=== PATIENT | female | born 1945 | race Caucasian/White ===

== ENCOUNTER 2016-06-23 17:12 | Inpatient (IN) | payer MEDICARE ==
[~2016-06-23] VITALS: Ht 152.4 cm; Wt 84.4 kg
[2016-06-23 17:12] VITALS: BP 92/58
[~2016-06-23 17:12] MED LIST: ASPIRIN81 M1 PO; BRILINTA90 M1 PO; FUROSEMIDE20 M1 PO; LEVEMIR10 ML SC; LISINOPRIL2.5 MG PO; MAGNESIUM OXID400 MG PO; MELATONIN10 M2 PO; METFORMIN HCL1000 M1 PO; METOPROLOL TART50 M1 PO; NAPROXEN500 MG PO; POTASSIUM CHLO10 ME5 PO; SIMVASTATIN40 MG PO; VITAMIN D32000 UNIT PO
[2016-06-23] MEDS ORDERED: AMARYL2 MG PO (17:26)
[2016-06-23 18:06] LABS: BASO % 0.4 % (0.0-1.0); EOS # 0.3 10*3/uL (0.0-0.4); EOS % 3.1 % (1.0-4.0); HEMATOCRIT 40.3 % (37.0-47.0); LYMPH # 3.4 10*3/uL (1.3-4.4); LYMPH % 41.3 % (27.0-41.0); MEAN CELL VOLUME 94.6 fl (81.0-99.0); MEAN CORPUSCULAR HGB 30.5 pg (27.0-31.0); MEAN CORPUSCULAR HGB CONC 32.3 g/dl (33.0-37.0); MEAN PLATELET VOLUME 11.4 fl (9.6-12.3); MONO # 0.6 10*3/uL (0.1-1.0); MONO % 7.5 % (3.0-9.0); NEUT # 3.9 10*3/uL (2.3-7.9); NEUT % 47.5 % (47.0-73.0); PLATELET COUNT AUTOMATED 191 10*3/uL (130-400); RED BLOOD COUNT 4.26 10*6/uL (4.10-5.10); RED CELL DISTRI WIDTH 12.9 % (0-14.5); WHITE BLOOD COUNT 8.2 10*3/uL (4.8-10.8)
[2016-06-23 18:13] LABS: ABG BASE EXCESS -1.3 mmol/L (-2.0-2.0); ABG CO2 CONTENT 23.1 mmol/L (23-27); ARTERIAL BLOOD GAS PH 7.438 (7.35-7.45)
[2016-06-23 18:18] LABS: BUN 11 mg/dl (7-24); CARBON DIOXIDE 24 mmol/L (21-32); EST GLOM FILT AFRICAN AMERICAN > 60 ml/min; GLUCOSE 117 mg/dL (65-99)
[2016-06-23 18:22] LABS: CHLORIDE 105 mmol/L (98-107); POTASSIUM 4.4 mmol/L (3.5-5.1); SODIUM 140 mmol/L (136-145)
[2016-06-23 18:30] VITALS: BP 134/69
[2016-06-23 19:29] VITALS: BP 132/79
[2016-06-23 20:49] VITALS: BP 136/77
[2016-06-23 21:00] VITALS: BP 128/65
[2016-06-24] VITALS: BP 126/62
[2016-06-24 06:04] LABS: BASO % 0.2 % (0.0-1.0); HEMOGLOBIN 12.4 g/dl (12.0-16.0); LYMPH # 1.2 10*3/uL (1.3-4.4); LYMPH % 18.4 % (27.0-41.0); MEAN CELL VOLUME 92.9 fl (81.0-99.0); MEAN CORPUSCULAR HGB 30.3 pg (27.0-31.0); MEAN CORPUSCULAR HGB CONC 32.6 g/dl (33.0-37.0); MEAN PLATELET VOLUME 11.6 fl (9.6-12.3); MONO # 0.1 10*3/uL (0.1-1.0); MONO % 0.9 % (3.0-9.0); NEUT # 5.2 10*3/uL (2.3-7.9); NEUT % 80.2 % (47.0-73.0); PLATELET COUNT AUTOMATED 185 10*3/uL (130-400); RED BLOOD COUNT 4.09 10*6/uL (4.10-5.10); RED CELL DISTRI WIDTH 12.6 % (0-14.5); WHITE BLOOD COUNT 6.5 10*3/uL (4.8-10.8)
[2016-06-24 06:12] LABS: BUN 16 mg/dl (7-24); CARBON DIOXIDE 23 mmol/L (21-32); CHLORIDE 99 mmol/L (98-107); CHOLESTEROL 81 mg/dL (<200); EST GLOM FILT AFRICAN AMERICAN 52 ml/min; FREE T4 1.42 ng/dl (0.76-1.46); GLUCOSE 372 mg/dL (65-99); HDL CHOLESTEROL 45 mg/dl (40-60); LDL CHOLESTEROL 26 mg/dL (9-159); MAGNESIUM 1.7 mg/dL (1.5-2.1); POTASSIUM 4.1 mmol/L (3.5-5.1); SODIUM 135 mmol/L (136-145); THYROID STIM HORMONE (HS) 0.131 uIU/ml (0.358-4.75); TRIGLYCERIDES 51 mg/dl (<150); VLDL CHOLESTEROL 10 mg/dL (6-40)
[2016-06-24 06:30] LABS: HEMOGLOBIN A1c 8.4 % (4.8-5.6)
[2016-06-24 06:34] LABS: TROPONIN I < 0.015 ng/ml (<0.5)
[2016-06-24 07:47] LABS: FOLIC ACID 8.6 ng/mL (>5.38)
[2016-06-24 08:00] VITALS: BP 136/58
[2016-06-24 12:00] VITALS: BP 120/84
[2016-06-24 16:00] VITALS: BP 120/48
[2016-06-24 20:00] VITALS: BP 133/88
[2016-06-25] VITALS: BP 130/85
[2016-06-25 06:30] LABS: BASO % 0.1 % (0.0-1.0); HEMATOCRIT 34.3 % (37.0-47.0); HEMOGLOBIN 11.3 g/dl (12.0-16.0); IG # 0.1 10*3/uL (0.0-0.1); LYMPH # 2.3 10*3/uL (1.3-4.4); LYMPH % 16.1 % (27.0-41.0); MEAN CELL VOLUME 92.5 fl (81.0-99.0); MEAN CORPUSCULAR HGB 30.5 pg (27.0-31.0); MEAN CORPUSCULAR HGB CONC 32.9 g/dl (33.0-37.0); MEAN PLATELET VOLUME 11.2 fl (9.6-12.3); MONO # 0.5 10*3/uL (0.1-1.0); MONO % 3.4 % (3.0-9.0); NEUT # 11.3 10*3/uL (2.3-7.9); NEUT % 79.9 % (47.0-73.0); PLATELET COUNT AUTOMATED 189 10*3/uL (130-400); RED BLOOD COUNT 3.71 10*6/uL (4.10-5.10); RED CELL DISTRI WIDTH 12.6 % (0-14.5); WHITE BLOOD COUNT 14.2 10*3/uL (4.8-10.8)
[2016-06-25 06:39] LABS: BUN 17 mg/dl (7-24); CARBON DIOXIDE 26 mmol/L (21-32); CHLORIDE 104 mmol/L (98-107); EST GLOM FILT AFRICAN AMERICAN > 60 ml/min; GLUCOSE 201 mg/dL (65-99); POTASSIUM 4.3 mmol/L (3.5-5.1); SODIUM 137 mmol/L (136-145)
[2016-06-25 08:00] VITALS: BP 126/54
[2016-06-25] MEDS ORDERED: LEVOFLOXACIN500 MG PO (11:49)
[2016-06-25] MEDS ORDERED: PREDNISONE10 MG PO (11:49)
[2016-06-25 12:00] VITALS: BP 110/52
== END 2016-06-25 13:25 | disposition home or self-care (01) | DRG 871 ==
LOC: ED 17:12 → EDHOLD 19:55 → 5E 20:13
PROVIDERS: Emergency Medicine; Internal Medicine
DX: A41.9 Sepsis, unspecified organism (principal); J96.01 Acute respiratory failure with hypoxia; N17.0 Acute kidney failure with tubular necrosis; J44.0 Chronic obstructive pulmonary disease with (acute) lower respiratory infection; J44.1 Chronic obstructive pulmonary disease with (acute) exacerbation; I10 Essential (primary) hypertension; E11.65 Type 2 diabetes mellitus with hyperglycemia; E78.5 Hyperlipidemia, unspecified; E11.42 Type 2 diabetes mellitus with diabetic polyneuropathy; F17.210 Nicotine dependence, cigarettes, uncomplicated; R00.0 Tachycardia, unspecified; D72.810 Lymphocytopenia; R65.20 Severe sepsis without septic shock; Z90.49 Acquired absence of other specified parts of digestive tract; Z98.51 Tubal ligation status; Z82.49 Family history of ischemic heart disease and other diseases of the circulatory system; Z71.6 Tobacco abuse counseling; Z79.82 Long term (current) use of aspirin; Z79.4 Long term (current) use of insulin; Z79.899 Other long term (current) drug therapy

== ENCOUNTER 2017-02-16 13:21 | Inpatient (IN) | payer MEDICARE ==
[~2017-02-16] VITALS: Ht 152.4 cm; Wt 84.6 kg
[~2017-02-16 13:21] MED LIST changes: +AMARYL2 MG PO; +LEVEMIR FL100 UNIT/1 SQ; -LEVEMIR10 ML SC; +LEVOFLOXACIN500 MG PO; +PREDNISONE10 MG PO
[2017-02-16 13:40] VITALS: BP 116/61
[2017-02-16 14:16] VITALS: BP 104/59
[2017-02-16 14:16] LABS: BASO % 0.3 % (0.0-1.0); EOS # 0.1 10*3/uL (0.0-0.4); EOS % 0.5 % (1.0-4.0); HEMATOCRIT 40.9 % (37.0-47.0); LYMPH # 1.8 10*3/uL (1.3-4.4); MEAN CELL VOLUME 92.3 fl (81.0-99.0); MEAN CORPUSCULAR HGB 29.3 pg (27.0-31.0); MEAN CORPUSCULAR HGB CONC 31.8 g/dl (33.0-37.0); MEAN PLATELET VOLUME 11.6 fl (9.6-12.3); MONO # 0.8 10*3/uL (0.1-1.0); MONO % 6.8 % (3.0-9.0); NEUT # 9.2 10*3/uL (2.3-7.9); PLATELET COUNT AUTOMATED 286 10*3/uL (130-400); RED BLOOD COUNT 4.43 10*6/uL (4.10-5.10)
[2017-02-16 14:26] LABS: ACT PARTIAL THROMBO TIME 24.7 SECONDS (20.8-31.5)
[2017-02-16 14:33] LABS: ALBUMIN 3.6 gm/dl (3.1-4.5); ALKALINE PHOSPHATASE 65 U/L (45-117); BUN 28 mg/dl (7-24); CHLORIDE 102 mmol/L (98-107); CKMB 0.9 ng/ml (0.5-3.6); CPK 144 U/L (26-192); CREATININE 1.77 mg/dL (0.55-1.02); LIPASE 200 U/L (73-393); MAGNESIUM 2.3 mg/dL (1.5-2.1); POTASSIUM 4.4 mmol/L (3.5-5.1); SGOT/AST 28 IU/L (3-35); SGPT/ALT 22 U/L (12-78); SODIUM 137 mmol/L (136-145); TOTAL PROTEIN 8.3 gm/dL (6.4-8.2)
[2017-02-16 14:34] LABS: TROPONIN I < 0.015 ng/ml (<0.045)
[2017-02-16 16:15] VITALS: BP 121/78
[2017-02-16 17:00] VITALS: BP 130/76
[2017-02-16 18:20] VITALS: BP 144/68
--- NOTE | 2017-02-16 18:56 | NUR ---
MED REC UPDATED AGAINST PHARMACY LIST -
--- NOTE | 2017-02-16 19:12 | NUR ---
[address] DIMAS PATIENT MAY BE TRASPORTED WITH OUT MONITOR . OZ IRWIN RN.
--- NOTE | 2017-02-16 19:33 | NUR ---
Time: 1829 A 72 year old F admitted to 5E under services of JENNIFER TURCIOS DO. Pt. arrived via bed from ER. Chief complaint: HYPOGLYCEMIA. GRAZYNA BUTLER A
[2017-02-16 20:00] VITALS: BP 138/74
--- NOTE | 2017-02-16 20:00 | NUR ---
PATIENT IS AWAKE, ALERT AND ORIENTED X3 PLEASANT AND COOPERATIVE WITH ASSESSMENT. LUNGS ARE DIMINISHED THROUGHOUT LUNGFIELDS. ROOM AIR. ABDOMEN IS SOFT AND NON-TENDER UPON PALPATION, BOWEL SOUNDS ARE NROMAOCTIVE X 4 QUADS. NO EDEMA TO BLE, PPP. PATIENT DENIES ANY PAIN OR DISCOMFORT. CALL LIGHT IS IN REACH.
[2017-02-17] VITALS: BP 118/73
--- NOTE | 2017-02-17 05:55 | NUR ---
PATIENT AROUSES EASILY FOR MORNING MEDICATIONS. ALERT AND ORIENTED X 3. DENIES ANY NEEDS AT THE PRESENT TIME. CALL LIGHT IS IN REACH.
[2017-02-17 06:01] LABS: BASO # 0.1 10*3/uL (0.0-0.1); BASO % 0.5 % (0.0-1.0); EOS # 0.2 10*3/uL (0.0-0.4); HEMATOCRIT 36.6 % (37.0-47.0); HEMOGLOBIN 11.9 g/dl (12.0-16.0); LYMPH # 3.6 10*3/uL (1.3-4.4); MEAN CORPUSCULAR HGB 29.6 pg (27.0-31.0); MEAN CORPUSCULAR HGB CONC 32.5 g/dl (33.0-37.0); MEAN PLATELET VOLUME 11.5 fl (9.6-12.3); MONO % 9.9 % (3.0-9.0); NEUT # 5.2 10*3/uL (2.3-7.9); NEUT % 51.2 % (47.0-73.0); PLATELET COUNT AUTOMATED 236 10*3/uL (130-400); RED BLOOD COUNT 4.02 10*6/uL (4.10-5.10); RED CELL DISTRI WIDTH 13.9 % (0-14.5); WHITE BLOOD COUNT 10.1 10*3/uL (4.8-10.8)
[2017-02-17 06:22] LABS: ALBUMIN 3.2 gm/dl (3.1-4.5); CREATININE 1.36 mg/dL (0.55-1.02); PHOSPHOROUS 3.3 mg/dL (2.5-4.9); POTASSIUM 4.5 mmol/L (3.5-5.1); TOTAL PROTEIN 7.1 gm/dL (6.4-8.2)
[2017-02-17 06:28] LABS: FREE T4 1.4 ng/dl (0.76-1.46); THYROID STIM HORMONE (HS) 0.262 uIU/ml (0.358-4.75)
[2017-02-17 07:45] LABS: VITAMIN D, 25-HYDROXY 37.4 ng/mL (30-100)
[2017-02-17 12:00] VITALS: BP 112/65
[2017-02-17 14:22] LABS: BILIRUBIN 1+ (NEGATIVE); BLOOD TRACE-INTACT (NEGATIVE); CLARITY CLEAR (CLEAR); COLOR YELLOW (YELLOW); GLUCOSE NEGATIVE (NEGATIVE); KETONE 1+ (NEGATIVE); LEUKO ESTERASE NEGATIVE (NEGATIVE); NITRITE NEGATIVE (NEGATIVE); SPECIFIC GRAVITY 1.025 (1.005-1.030); UROBILINOGEN 0.2 E.U./dl (0.2-1.0)
[2017-02-17 14:39] LABS: BACTERIA 1+; EPITHELIAL CELLS 35-40
[2017-02-17 16:00] VITALS: BP 103/55
[2017-02-17 20:00] VITALS: BP 109/75
[2017-02-18] VITALS: BP 105/55
[2017-02-18 05:58] LABS: BASO # 0.1 10*3/uL (0.0-0.1); BASO % 0.5 % (0.0-1.0); EOS # 0.3 10*3/uL (0.0-0.4); EOS % 2.5 % (1.0-4.0); HEMATOCRIT 33.4 % (37.0-47.0); HEMOGLOBIN 10.6 g/dl (12.0-16.0); LYMPH # 4.2 10*3/uL (1.3-4.4); LYMPH % 39.8 % (27.0-41.0); MEAN CELL VOLUME 92.5 fl (81.0-99.0); MEAN CORPUSCULAR HGB 29.4 pg (27.0-31.0); MEAN CORPUSCULAR HGB CONC 31.7 g/dl (33.0-37.0); MEAN PLATELET VOLUME 11.5 fl (9.6-12.3); MONO % 9.7 % (3.0-9.0); NEUT % 47.2 % (47.0-73.0); PLATELET COUNT AUTOMATED 215 10*3/uL (130-400); RED BLOOD COUNT 3.61 10*6/uL (4.10-5.10); RED CELL DISTRI WIDTH 13.8 % (0-14.5); WHITE BLOOD COUNT 10.6 10*3/uL (4.8-10.8)
[2017-02-18 06:29] LABS: CREATININE 1.19 mg/dL (0.55-1.02); POTASSIUM 4.3 mmol/L (3.5-5.1)
[2017-02-18 08:00] VITALS: BP 115/54
[2017-02-18 12:00] VITALS: BP 101/56
--- NOTE | 2017-02-18 14:29 | NUR ---
Discharge instructions reviewed with patient. Patient receptive and verbalizes understanding. Follow-up care arranged. Written instructions given to patient. KEM MIX
--- NOTE | 2017-02-18 15:00 | NUR ---
PATIENT AWAITING RIDE HOME WITH DAUGHTER AFTER 6PM.
--- NOTE | 2017-02-18 17:52 | NUR ---
Discharge instructions reviewed with patient/family. Patient receptive and verbalizes understanding. Follow-up care arranged. Written instructions given to patient/family. DEONDRE LONDONO
--- NOTE | 2017-02-18 17:53 | NUR ---
PATIENT AMBULATED OFF FLOOR WITH ASSISTANCE OF KODAK.
== END 2017-02-18 17:53 | disposition home or self-care (01) | DRG 73 ==
LOC: ED 13:21 → EDHOLD 15:42 → 5E 16:36
PROVIDERS: Emergency Medicine; Family Medicine; Registered Nurse; ADMIT Internal Medicine
DX: E11.40 Type 2 diabetes mellitus with diabetic neuropathy, unspecified (principal); N17.0 Acute kidney failure with tubular necrosis; E11.649 Type 2 diabetes mellitus with hypoglycemia without coma; J44.9 Chronic obstructive pulmonary disease, unspecified; F17.210 Nicotine dependence, cigarettes, uncomplicated; E86.0 Dehydration; I10 Essential (primary) hypertension; D72.829 Elevated white blood cell count, unspecified; E78.5 Hyperlipidemia, unspecified; I25.2 Old myocardial infarction; Z90.49 Acquired absence of other specified parts of digestive tract; Z95.818 Presence of other cardiac implants and grafts; Z98.51 Tubal ligation status; Z82.49 Family history of ischemic heart disease and other diseases of the circulatory system; Z79.82 Long term (current) use of aspirin; Z79.899 Other long term (current) drug therapy; Z83.3 Family history of diabetes mellitus; Z79.4 Long term (current) use of insulin; Z79.84 Long term (current) use of oral hypoglycemic drugs; Z71.6 Tobacco abuse counseling

== ENCOUNTER → 2017-08-02 | Outpatient (CLI) | payer MEDICARE | END | disposition home or self-care (01) | LOC: RAD 10:17 | DX: M54.5 Low back pain (principal) ==

== ENCOUNTER 2017-10-09 23:25 | Emergency (ER) | payer MEDICARE ==
[~2017-10-09] VITALS: Ht 152.4 cm; Wt 83.0 kg
[2017-10-09] MEDS ORDERED: LEVEMIR100 UNIT/1 SC (23:32)
[2017-10-09] MEDS ORDERED: CITALOPRAM20 MG PO (23:32)
[2017-10-09] MEDS ORDERED: MELOXICAM7.5 MG PO (23:33)
== END 2017-10-10 00:55 | disposition home or self-care (01) ==
LOC: ED 23:25
DX: S21.202A Unspecified open wound of left back wall of thorax without penetration into thoracic cavity, initial encounter (principal); F17.200 Nicotine dependence, unspecified, uncomplicated; Z90.49 Acquired absence of other specified parts of digestive tract; Z98.51 Tubal ligation status; Z79.899 Other long term (current) drug therapy; Z79.82 Long term (current) use of aspirin; Z95.5 Presence of coronary angioplasty implant and graft; X58.XXXA Exposure to other specified factors, initial encounter; Y93.89 Activity, other specified; Y92.89 Other specified places as the place of occurrence of the external cause; Y99.9 Unspecified external cause status

== ENCOUNTER → 2017-10-15 | Outpatient (CLI) | payer MEDICARE ==
[~2017-10-15] MED LIST changes: +CITALOPRAM20 MG PO; +LEVEMIR100 UNIT/1 SC; +MELOXICAM7.5 MG PO
== END | disposition home or self-care (01) ==
LOC: WOUNDCARE 01:43
DX: E11.622 Type 2 diabetes mellitus with other skin ulcer (principal); L98.421 Non-pressure chronic ulcer of back limited to breakdown of skin; I51.9 Heart disease, unspecified; F17.210 Nicotine dependence, cigarettes, uncomplicated; Z79.4 Long term (current) use of insulin; Z90.49 Acquired absence of other specified parts of digestive tract

== ENCOUNTER 2018-12-14 15:22 | Emergency (ER) | payer MEDICARE ==
[~2018-12-14] VITALS: Ht 152.4 cm; Wt 83.9 kg
== END 2018-12-14 17:32 | disposition home or self-care (01) ==
LOC: ED 15:22
DX: S90.122A Contusion of left lesser toe(s) without damage to nail, initial encounter (principal); R60.0 Localized edema; F17.210 Nicotine dependence, cigarettes, uncomplicated; Z79.899 Other long term (current) drug therapy; Z79.82 Long term (current) use of aspirin; Z79.84 Long term (current) use of oral hypoglycemic drugs; Z90.49 Acquired absence of other specified parts of digestive tract; W19.XXXA Unspecified fall, initial encounter; Y93.89 Activity, other specified; Y92.89 Other specified places as the place of occurrence of the external cause; Y99.8 Other external cause status

== ENCOUNTER 2019-02-25 13:50 | Inpatient (IN) | payer MEDICARE ==
[~2019-02-25] VITALS: Ht 152.4 cm; Wt 83.0 kg
[2019-02-25 14:13] LABS: BASO # 0.1 10*3/uL (0.0-0.1); BASO % 0.6 % (0.0-1.0); EOS # 0.2 10*3/uL (0.0-0.4); HEMATOCRIT 39.5 % (37.0-47.0); HEMOGLOBIN 12.1 g/dl (12.0-16.0); LYMPH # 3.1 10*3/uL (1.3-4.4); LYMPH % 29.5 % (27.0-41.0); MEAN CELL VOLUME 95.2 fl (81.0-99.0); MEAN CORPUSCULAR HGB 29.2 pg (27.0-31.0); MEAN CORPUSCULAR HGB CONC 30.6 g/dl (33.0-37.0); MEAN PLATELET VOLUME 11.5 fl (9.6-12.3); MONO # 0.7 10*3/uL (0.1-1.0); NEUT # 6.3 10*3/uL (2.3-7.9); NEUT % 60.6 % (47.0-73.0); PLATELET COUNT AUTOMATED 280 10*3/uL (130-400); RED BLOOD COUNT 4.15 10*6/uL (4.10-5.10); RED CELL DISTRI WIDTH 13.6 % (0-14.5); WHITE BLOOD COUNT 10.4 10*3/uL (4.8-10.8)
[2019-02-25 14:21] VITALS: BP 133/61
[2019-02-25 14:26] LABS: ACT PARTIAL THROMBO TIME 25.6 SECONDS (20.0-32.1); INTERNATIONAL NORM RATIO 0.9 (2.0-3.5)
[2019-02-25 14:32] LABS: ALBUMIN 3.2 gm/dl (3.1-4.5); ALKALINE PHOSPHATASE 71 U/L (45-117); BUN 11 mg/dl (7-24); CHLORIDE 103 mmol/L (98-107); CREATININE 0.88 mg/dL (0.55-1.02); POTASSIUM 4.2 mmol/L (3.5-5.1); SGOT/AST 29 IU/L (3-35); SGPT/ALT 18 U/L (12-78); SODIUM 138 mmol/L (136-145); TOTAL PROTEIN 7.2 gm/dL (6.4-8.2)
[2019-02-25 14:40] LABS: TROPONIN I < 0.015 ng/ml (<0.045)
[2019-02-25 16:00] VITALS: BP 139/70
[2019-02-25 16:04] VITALS: BP 139/70
--- NOTE | 2019-02-25 16:40 | NUR ---
A 74, admitted to 5E, under the services of LESLIE Ahuja DO with a diagnosis of COPD. Chief complaint is SOB. Patient arrived via stretcher from ER. Monitor applied. Initial assessment completed. Vital signs taken and recorded. LESLIE AHUJA DO notified of admission to the unit. Orders received. See assessment for past medical history, medications and allergies. Patient and/or family oriented to unit. [facility] visitation policy reviewed. Clothing/patient valuable form completed. FABIO PEÑA
[2019-02-25] MEDS ORDERED: LASIX20 MG PO (17:37)
[2019-02-25] MEDS ORDERED: NAPROSYN500 MG PO (17:38)
--- NOTE | 2019-02-25 18:15 | NUR ---
DR HUDSON NOTIFIED OF CONSULT
[2019-02-25 20:00] VITALS: BP 115/41
[2019-02-25 20:30] VITALS: BP 122/78
--- NOTE | 2019-02-25 20:40 | NUR ---
RESTING IN BED. NO C/O AT THIS TIME. CALL LIGHT IN REACH. SEE SHIFT ASSESSMENT.
--- NOTE | 2019-02-25 22:00 | NUR ---
RESTING IN BED WITH EYES CLOSED. RESP-EASY AND REGULAR. CALL LIGHT IN REACH.
[2019-02-26] VITALS (8 sets, daily range): BP systolic 106–142; BP diastolic 51–73
--- NOTE | 2019-02-26 00:10 | NUR ---
PT SLEEPING IN BED, AWAKENS EASILY. NO C/O AT THIS TIME. CALL LIGHT IN REACH. SEE SHIFT ASSESSMENT.
--- NOTE | 2019-02-26 04:00 | NUR ---
TOLERATED ROUTINE MED WITH NO PROBLEM. CALL LIGHT IN REACH.
--- NOTE | 2019-02-26 06:00 | NUR ---
ASSISTED TO BATHROOM AND BACK TO BED. NO C/O AT THIS TIME. CALL LIGHT IN REACH.
[2019-02-26 06:18] LABS: RED CELL DISTRI WIDTH 13.2 % (0-14.5)
[2019-02-26 06:52] LABS: ALBUMIN 3.2 gm/dl (3.1-4.5); BUN 16 mg/dl (7-24); CHLORIDE 101 mmol/L (98-107); CHOLESTEROL 95 mg/dL (<200); POTASSIUM 4.2 mmol/L (3.5-5.1); SGOT/AST 18 IU/L (3-35); SODIUM 135 mmol/L (136-145); TRIGLYCERIDES 64 mg/dl (<150); VLDL CHOLESTEROL 13 mg/dL (6-40)
[2019-02-26 07:00] LABS: ALKALINE PHOSPHATASE 71 U/L (45-117); CREATININE 0.89 mg/dL (0.55-1.02); HDL CHOLESTEROL 59 mg/dl (40-60); LDL CHOLESTEROL 23 mg/dL (9-159); SGPT/ALT 17 U/L (12-78); THYROID STIM HORMONE (HS) 0.202 uIU/ml (0.358-4.75); TOTAL PROTEIN 7.5 gm/dL (6.4-8.2)
[2019-02-26 07:06] LABS: INTERNATIONAL NORM RATIO 0.9 (2.0-3.5)
[2019-02-26 08:08] LABS: VITAMIN D, 25-HYDROXY 41.3 ng/mL (30-100)
[2019-02-26 08:13] LABS: BURR CELLS FEW; TOTAL CELLS COUNTED 100 #CELLS
[2019-02-26 08:14] LABS: OVALOCYTES FEW; PLATELET SUFFICIENCY NORMAL (NORMAL)
[2019-02-26 08:16] LABS: HEMATOCRIT 39.6 % (37.0-47.0); HEMOGLOBIN 12.4 g/dl (12.0-16.0); MEAN CELL VOLUME 93.4 fl (81.0-99.0); MEAN CORPUSCULAR HGB 29.2 pg (27.0-31.0); MEAN CORPUSCULAR HGB CONC 31.3 g/dl (33.0-37.0); MEAN PLATELET VOLUME 11.7 fl (9.6-12.3); PLATELET COUNT AUTOMATED 300 10*3/uL (130-400); RED BLOOD COUNT 4.24 10*6/uL (4.10-5.10); WHITE BLOOD COUNT 8.2 10*3/uL (4.8-10.8)
--- NOTE | 2019-02-26 09:00 | NUR ---
Catering Barista in to talk to patient. Patient states lives at home with alone. There are few steps in the home. Physician: armani nelson [facility]: [facility] Home health services: none Patient's level of ADLs: INDEPENDENT Patient has working utilities: all working DME: rollator walker, cane Follow-up physician's appointment after d/c: will be made by hospitalist nurse director upon discharge Does patient want to access PORTAL?: no Discharge plan discussed with patient, she states she lives at home alone, she is independent with a rollator walker and is independent in adls, she has always best care professional that comes 3x week and helps with cleaning, patient states she will return home when able, discussed with her VNA and she declines any home services at this time, case management will follow. GENNA NORMAN
--- NOTE | 2019-02-26 15:04 | NUR ---
PHYSICAL THERAPY Physical therapy evaluation complete, 5E. Low complexity PT evaluation (65478) per chart review and evaluation. PT to progress transfers, gait, balance, and LE strength per POC. Recommend discharge home with home health PT services. Thank you. Evi Thomson,PT,DPT.
--- NOTE | 2019-02-26 15:05 | NUR ---
Occupational therapy orders received and OT eval completed in full on floor five. Patient precautions include fall risk, ww use, and SOB with exertion. Per OT eval, patient would benefit from home health SN, PT, and OT services. Patient would benefit from continued OT treatment to maximize independence and safety during ADLs and functional mobility/transfers. Patient complexity is low, [id number]. Thank you for the referral. Cindy Angeles, OTR/L
[2019-02-27] VITALS: BP 114/63
[2019-02-27 07:16] LABS: BUN 21 mg/dl (7-24); CHLORIDE 103 mmol/L (98-107); CREATININE 0.95 mg/dL (0.55-1.02); POTASSIUM 4.5 mmol/L (3.5-5.1); SODIUM 137 mmol/L (136-145)
--- NOTE | 2019-02-27 07:50 | NUR ---
PT RESTING IN BED. RESP-EASY AND REGULAR. NO C/O AT THIS TIME. CALL LIGHT IN REACH. SEE SHIFT ASSESSMENT.
--- NOTE | 2019-02-27 09:00 | NUR ---
TOLERATED ROUTINE MED WITH NO PROBLEM. NO C/O AT THIS TIME. CALL LIGHT IN REACH.
--- NOTE | 2019-02-27 09:00 | NUR ---
case management visits with patient, discussed with her a discharge plan, she states she would be returning home when medically stable, discussed with her VNA and she declines any services at this time, case management will follow
--- NOTE | 2019-02-27 11:00 | NUR ---
PHYSICAL THERAPY Patient seen this am 1:1 for therapy visit and was resting supine in bed upon therapist arrival. Patient identified by name / and reports no new c/o's at this time. Patient transfers supine to sit EOB and sit to stand SBA, ambulating with use of wh walker, 75'x 1, CGA, demonstrating slow steady ceci. Patient returned to supine in bed with mild fatiuge and remained with call light, tray table and cell phone. Will continue per POC as tolerated, total treatment time 14 minutes. Waylon Humphrey, DISTRICT RANGER
--- NOTE | 2019-02-27 11:45 | NUR ---
DR. BYRD MADE AWARE PT [id number], MEDICATED PER EMAR.
[2019-02-27] MEDS ORDERED: Carafate1 GM/10 ML PO (12:34)
[2019-02-27] MEDS ORDERED: PHARMASSURE V500 MCG PO (12:35)
[2019-02-27] MEDS ORDERED: DOXYCYCLINE100 M3 PO (12:35)
[2019-02-27] MEDS ORDERED: PREDNISONE10 MG PO (12:35)
[2019-02-27] MEDS ORDERED: PROTONIX40 MG PO (12:35)
--- NOTE | 2019-02-27 13:43 | NUR ---
Discharge instructions reviewed with patient/family. Patient receptive and verbalizes understanding. Follow-up care arranged. Written instructions given to patient/family. HEPLOCK REMOVED 2X2 APPLIED. HOLTER REMOVED. ESCORTED VIA WHEELCHAIR FOR DISCHARGE WITH VISITOR AT HER SIDE. CLARENCE RMAOS R
--- NOTE | 2019-02-28 07:45 | NUR ---
PHYSICAL THERAPY CO-SIGN I approve of the Physical Therapy notes written above. JOS EA FUENTES PT,DPT
[2019-04-17] MEDS ORDERED: ASPIR 8181 MG PO (10:14)
[2019-04-17] MEDS ORDERED: BRILINTA60 MG PO (10:14)
[2019-04-17] MEDS ORDERED: PROPRANOLOL HCL10 MG PO (10:15)
[2019-04-17] MEDS ORDERED: NEURONTIN600 MG PO (10:15)
== END 2019-02-27 13:38 | disposition home or self-care (01) | DRG 383 ==
LOC: ED 13:50 → EDHOLD 15:58 → 5E 15:58
PROVIDERS: Emergency Medicine; Student in an Organized Health Care Education/Training Program; ADMIT Internal Medicine
PROC: 0DB78ZX Excision of Stomach, Pylorus, Via Natural or Artificial Opening Endoscopic, Diagnostic (ICD-10-PCS; principal; 2019-02-26)
DX: K25.9 Gastric ulcer, unspecified as acute or chronic, without hemorrhage or perforation (principal); J18.9 Pneumonia, unspecified organism; J96.01 Acute respiratory failure with hypoxia; J44.0 Chronic obstructive pulmonary disease with (acute) lower respiratory infection; J44.1 Chronic obstructive pulmonary disease with (acute) exacerbation; I24.9 Acute ischemic heart disease, unspecified; E44.0 Moderate protein-calorie malnutrition; K29.80 Duodenitis without bleeding; K29.70 Gastritis, unspecified, without bleeding; K44.9 Diaphragmatic hernia without obstruction or gangrene; R00.0 Tachycardia, unspecified; E78.5 Hyperlipidemia, unspecified; F17.210 Nicotine dependence, cigarettes, uncomplicated; E11.42 Type 2 diabetes mellitus with diabetic polyneuropathy; E66.9 Obesity, unspecified; E55.9 Vitamin D deficiency, unspecified; K26.9 Duodenal ulcer, unspecified as acute or chronic, without hemorrhage or perforation; I10 Essential (primary) hypertension; E11.65 Type 2 diabetes mellitus with hyperglycemia; Z79.4 Long term (current) use of insulin; I25.2 Old myocardial infarction; Z95.5 Presence of coronary angioplasty implant and graft; Z90.49 Acquired absence of other specified parts of digestive tract; Z98.51 Tubal ligation status; Z82.49 Family history of ischemic heart disease and other diseases of the circulatory system; Z83.3 Family history of diabetes mellitus; Z79.82 Long term (current) use of aspirin; Z79.899 Other long term (current) drug therapy; Z79.84 Long term (current) use of oral hypoglycemic drugs; Z68.35 Body mass index [BMI] 35.0-35.9, adult

== ENCOUNTER → 2019-04-17 | Outpatient (CLI) | payer MEDICARE ==
[~2019-04-17] MED LIST changes: +ASPIR 8181 MG PO; +BRILINTA60 MG PO; +Carafate1 GM/10 ML PO; +DOXYCYCLINE100 M3 PO; +LASIX20 MG PO; +NAPROSYN500 MG PO; +NEURONTIN600 MG PO; +PHARMASSURE V500 MCG PO; +PROPRANOLOL HCL10 MG PO; +PROTONIX40 MG PO
--- NOTE | ~2019-04-17 | ST ---
[place], [place] EXERCISE STRESS TEST REPORT NAME: HUNTER DAVILA UNIT #: [id number] ROOM: DOCTOR: SUPRIYA ROMO [facility]LL[facility] BIRTHDATE: [birth year] DOS: 04/17/2019 LEXISCAN WITH CARDIOLITE The patient received Lexiscan 0.4 mg over 10 seconds. Heart rate is 116. No ischemic changes noted in the EKG, complete right bundle branch block. No significant changes noted and isotope was injected. Myocardial perfusion scan to follow. No complication noted. HOLLIE EPPS MD CM:STRESS:EXERCISE STRESS TEST REPORT [id number] HOLLIE EPPS MD [facility]
--- NOTE | 2019-04-17 12:30 | NUR ---
INFORMED CONSENT OBTAINED FOR LEXISCAN NUCLEAR STRESS TEST WITH DR. EPPS. RESTING EKG INCOMPLETE RBBB WITH A RESTING HR OF 89 WITH BP OF 102/68. LUNGS CLEAR WITH SP02 OF 97% ON ROOM AIR. PT COMPLETED A 1:00 LEXISCAN PROTOCOL RECEIVING LEXISCAN 0.4 MG IV OVER 10 SECONDS. HAD NO CHEST PAIN OR ANY EKG CHANGES. HAD C/O SHORTNESS OF BREATH THAT RESOLVED IN RECOVERY. HAD A PEAK HR OF 115 WITH BP OF 106/48. LAST RECOVERY HR OF 118 WITH BP OF 98/50. AWAITING SCANNING IN STABLE CONDITION.
== END | disposition home or self-care (01) ==
LOC: CARD 00:47
DX: I25.10 Atherosclerotic heart disease of native coronary artery without angina pectoris (principal); R06.02 Shortness of breath; R00.0 Tachycardia, unspecified; R94.31 Abnormal electrocardiogram [ECG] [EKG]; R53.81 Other malaise; Z72.0 Tobacco use; Z95.5 Presence of coronary angioplasty implant and graft

== ENCOUNTER → 2019-05-05 | Outpatient (CLI) | payer MEDICARE | END | disposition home or self-care (01) | LOC: CARD 10:10 | DX: I25.10 Atherosclerotic heart disease of native coronary artery without angina pectoris (principal); R06.02 Shortness of breath; R00.0 Tachycardia, unspecified; R94.31 Abnormal electrocardiogram [ECG] [EKG]; Z72.0 Tobacco use; Z95.5 Presence of coronary angioplasty implant and graft ==

== ENCOUNTER → 2020-02-19 | Outpatient (CLI) | payer MEDICARE ==
[2020-02-19 10:55] LABS: BUN 11 mg/dl (7-24); CHLORIDE 106 mmol/L (98-107); CHOLESTEROL 96 mg/dL (<200); HDL CHOLESTEROL 53 mg/dl (40-60); LDL CHOLESTEROL 19 mg/dL (9-159); POTASSIUM 4.2 mmol/L (3.5-5.1); SGOT/AST 11 IU/L (3-35); SGPT/ALT 12 U/L (12-78); SODIUM 140 mmol/L (136-145); TRIGLYCERIDES 118 mg/dl (<150); VLDL CHOLESTEROL 24 mg/dL (6-40)
== END | disposition home or self-care (01) ==
LOC: LAB 09:27
PROVIDERS: ATTEND Internal Medicine Cardiovascular Disease
DX: I25.10 Atherosclerotic heart disease of native coronary artery without angina pectoris (principal); R60.0 Localized edema; Z72.0 Tobacco use; Z95.5 Presence of coronary angioplasty implant and graft

== ENCOUNTER → 2020-12-27 | Outpatient (CLI) | payer OTHER | END | disposition home or self-care (01) | LOC: US 15:50 | PROVIDERS: ATTEND Internal Medicine Cardiovascular Disease | DX: R60.0 Localized edema (principal) ==

== ENCOUNTER → 2021-01-13 | Outpatient (CLI) | payer OTHER ==
[2021-01-13 09:18] LABS: BASO # 0.1 10*3/uL (0.0-0.1); BASO % 0.5 % (0.0-1.0); EOS # 0.3 10*3/uL (0.0-0.4); EOS % 2.8 % (1.0-4.0); LYMPH # 3.3 10*3/uL (1.3-4.4); LYMPH % 29.4 % (27.0-41.0); MEAN CELL VOLUME 96.5 fl (81.0-99.0); MEAN CORPUSCULAR HGB 29.8 pg (27.0-31.0); MEAN CORPUSCULAR HGB CONC 30.9 g/dl (33.0-37.0); MEAN PLATELET VOLUME 11.5 fl (9.6-12.3); MONO # 0.9 10*3/uL (0.1-1.0); MONO % 8.1 % (3.0-9.0); NEUT # 6.7 10*3/uL (2.3-7.9); NEUT % 58.8 % (47.0-73.0); PLATELET COUNT AUTOMATED 251 10*3/uL (130-400); RED BLOOD COUNT 4.56 10*6/uL (4.10-5.10); RED CELL DISTRI WIDTH 12.6 % (0-14.5); WHITE BLOOD COUNT 11.3 10*3/uL (4.8-10.8)
[2021-01-13 09:45] LABS: CREATININE 1.32 mg/dL (0.55-1.02); POTASSIUM 3.9 mmol/L (3.5-5.1)
== END | disposition home or self-care (01) ==
LOC: LAB 08:50
PROVIDERS: ATTEND Registered Nurse
DX: I25.10 Atherosclerotic heart disease of native coronary artery without angina pectoris (principal)

== ENCOUNTER → 2021-02-21 | Outpatient (CLI) | payer OTHER ==
[2021-02-21 08:51] LABS: HEMATOCRIT 36.9 % (37.0-47.0); MEAN CELL VOLUME 92.3 fl (81.0-99.0); MEAN CORPUSCULAR HGB 27.8 pg (27.0-31.0); MEAN CORPUSCULAR HGB CONC 30.1 g/dl (33.0-37.0); MEAN PLATELET VOLUME 11.5 fl (9.6-12.3); RED CELL DISTRI WIDTH 13.1 % (0-14.5)
[2021-02-21 09:03] LABS: CREATININE 1.33 mg/dL (0.55-1.02); POTASSIUM 4.1 mmol/L (3.5-5.1)
== END | disposition home or self-care (01) ==
LOC: LAB 08:15
PROVIDERS: ATTEND Internal Medicine Cardiovascular Disease
DX: I25.10 Atherosclerotic heart disease of native coronary artery without angina pectoris (principal); R60.0 Localized edema

== ENCOUNTER → 2021-11-02 | Day surgery (SDC) | payer OTHER ==
[~2021-11-02] VITALS: Ht 152.4 cm; Wt 87.5 kg
[~2021-11-02] MED LIST changes: +HUMALOG100 UNIT/1 SC; +IMDUR SA30 MG PO; -METFORMIN HCL1000 M1 PO; +METFORMIN HCL500 M2 PO; +PANTOPRAZOLE SO40 MG PO; +TRULICITY1.5 MG/0.5 SC; +VITAMIN B122500 MC1 PO; +VITAMIN D3125 MC1 PO
[2021-11-02 09:28] VITALS: BP 130/54
[2021-11-02 10:42] VITALS: BP 104/52
[2021-11-02 10:57] VITALS: BP 109/67
[2021-11-02 11:12] VITALS: BP 103/57
== END | disposition home or self-care (01) ==
LOC: SDC 10-28 14:00
PROVIDERS: ATTEND Ophthalmology
DX: E11.36 Type 2 diabetes mellitus with diabetic cataract (principal); H25.812 Combined forms of age-related cataract, left eye; I25.2 Old myocardial infarction; I25.10 Atherosclerotic heart disease of native coronary artery without angina pectoris; I10 Essential (primary) hypertension; J44.9 Chronic obstructive pulmonary disease, unspecified; F17.210 Nicotine dependence, cigarettes, uncomplicated; Z79.899 Other long term (current) drug therapy

== ENCOUNTER → 2021-12-07 | Day surgery (SDC) | payer OTHER ==
[~2021-12-07] VITALS: Ht 152.4 cm; Wt 87.5 kg
[2021-12-07 07:48] VITALS: BP 112/58
[2021-12-07 09:19] VITALS: BP 117/55
[2021-12-07 09:30] VITALS: BP 111/51
[2021-12-07 09:49] VITALS: BP 102/46
== END | disposition home or self-care (01) ==
LOC: SDC 12-02 09:30
PROVIDERS: ATTEND Ophthalmology
DX: E10.36 Type 1 diabetes mellitus with diabetic cataract (principal); H25.811 Combined forms of age-related cataract, right eye; I25.10 Atherosclerotic heart disease of native coronary artery without angina pectoris; I25.2 Old myocardial infarction; I10 Essential (primary) hypertension; F17.210 Nicotine dependence, cigarettes, uncomplicated; Z95.5 Presence of coronary angioplasty implant and graft; J44.9 Chronic obstructive pulmonary disease, unspecified; Z79.899 Other long term (current) drug therapy

== ENCOUNTER → 2022-01-10 | Outpatient (CLI) | payer OTHER ==
[2022-01-10 09:56] LABS: POTASSIUM 3.6 mmol/L (3.5-5.1)
[2022-01-10 10:02] LABS: CREATININE 1.22 mg/dL (0.55-1.02)
== END | disposition home or self-care (01) ==
LOC: LAB 08:30
PROVIDERS: ATTEND Internal Medicine Cardiovascular Disease
DX: I25.10 Atherosclerotic heart disease of native coronary artery without angina pectoris (principal)

== ENCOUNTER → 2022-03-29 | Outpatient (CLI) | payer OTHER | END | disposition home or self-care (01) | LOC: RAD 11:36 | PROVIDERS: ATTEND Internal Medicine Cardiovascular Disease | DX: R06.02 Shortness of breath (principal); Z72.0 Tobacco use; Z95.5 Presence of coronary angioplasty implant and graft ==

== ENCOUNTER → 2023-02-06 | Outpatient (CLI) | payer OTHER | END | disposition home or self-care (01) | LOC: CARD 02:29 | PROVIDERS: ATTEND Internal Medicine Cardiovascular Disease | DX: I25.10 Atherosclerotic heart disease of native coronary artery without angina pectoris (principal) ==

== ENCOUNTER → 2023-07-19 | Outpatient (CLI) | payer OTHER ==
[2023-07-19 10:05] LABS: BASO # 0.1 10*3/uL (0.0-0.1); BASO % 0.5 % (0.0-1.0); EOS # 0.3 10*3/uL (0.0-0.4); EOS % 2.3 % (1.0-4.0); HEMATOCRIT 48.1 % (37.0-47.0); LYMPH % 33.7 % (27.0-41.0); MEAN CELL VOLUME 94.3 fl (81.0-99.0); MEAN CORPUSCULAR HGB 29.6 pg (27.0-31.0); MEAN CORPUSCULAR HGB CONC 31.4 g/dl (33.0-37.0); MEAN PLATELET VOLUME 11.4 fl (9.6-12.3); NEUT # 6.6 10*3/uL (2.3-7.9); NEUT % 55.2 % (47.0-73.0); PLATELET COUNT AUTOMATED 243 10*3/uL (130-400); RED CELL DISTRI WIDTH 13.2 % (0-14.5); WHITE BLOOD COUNT 11.9 10*3/uL (4.8-10.8)
[2023-07-19 10:25] LABS: ALKALINE PHOSPHATASE 76 U/L (46-116); BUN 12 mg/dl (9-23); CHLORIDE 100 mmol/L (98-107); CHOLESTEROL 137 mg/dL (<200); LDL CHOLESTEROL 70 mg/dL (9-159); POTASSIUM 3.5 mmol/L (3.4-5.1); SGPT/ALT 19 U/L (5-49); TOTAL PROTEIN 7.5 gm/dL (6.0-8.0); TRIGLYCERIDES 72 mg/dl (<150)
== END | disposition home or self-care (01) ==
LOC: LAB 09:19
PROVIDERS: ATTEND Family Medicine
DX: E11.65 Type 2 diabetes mellitus with hyperglycemia (principal); E55.9 Vitamin D deficiency, unspecified; E78.5 Hyperlipidemia, unspecified; Z79.4 Long term (current) use of insulin

== ENCOUNTER → 2023-08-27 | Outpatient (CLI) | payer OTHER ==
[2023-08-27 10:38] LABS: BUN 10 mg/dl (9-23); CHLORIDE 97 mmol/L (98-107); POTASSIUM 3.7 mmol/L (3.4-5.1)
== END | disposition home or self-care (01) ==
LOC: LAB 09:46
PROVIDERS: ATTEND Family Medicine
DX: E11.65 Type 2 diabetes mellitus with hyperglycemia (principal); Z79.4 Long term (current) use of insulin

== ENCOUNTER → 2024-07-28 | Outpatient (CLI) | payer OTHER ==
[2024-07-28 09:10] LABS: BASO # 0.1 10*3/uL (0.0-0.1); BASO % 0.7 % (0.0-1.0); EOS # 0.2 10*3/uL (0.0-0.4); EOS % 2.6 % (1.0-4.0); HEMATOCRIT 46.9 % (37.0-47.0); MEAN CELL VOLUME 94.6 fl (81.0-99.0); MEAN CORPUSCULAR HGB 30.4 pg (27.0-31.0); MEAN CORPUSCULAR HGB CONC 32.2 g/dl (33.0-37.0); MEAN PLATELET VOLUME 10.7 fl (9.6-12.3); MONO # 0.6 10*3/uL (0.1-1.0); MONO % 6.5 % (3.0-9.0); NEUT # 3.9 10*3/uL (2.3-7.9); NEUT % 42.3 % (47.0-73.0); PLATELET COUNT AUTOMATED 220 10*3/uL (130-400); RED BLOOD COUNT 4.96 10*6/uL (4.10-5.10); RED CELL DISTRI WIDTH 12.6 % (0-14.5); WHITE BLOOD COUNT 9.1 10*3/uL (4.8-10.8)
[2024-07-28 09:56] LABS: ALKALINE PHOSPHATASE 73 U/L (46-116); BUN 19 mg/dl (9-23); CHLORIDE 105 mmol/L (98-107); CHOLESTEROL 130 mg/dL (<200); FREE T4 1.19 ng/dl (0.89-1.76); LDL CHOLESTEROL 71 mg/dL (9-159); POTASSIUM 3.8 mmol/L (3.4-5.1); SGPT/ALT 12 U/L (5-49); TOTAL PROTEIN 6.8 gm/dL (6.0-8.0); TRIGLYCERIDES 56 mg/dl (<150)
== END | disposition home or self-care (01) ==
LOC: LAB 08:42
PROVIDERS: ATTEND Family Medicine
DX: E11.65 Type 2 diabetes mellitus with hyperglycemia (principal); E55.9 Vitamin D deficiency, unspecified; E78.5 Hyperlipidemia, unspecified; Z79.4 Long term (current) use of insulin